=== PATIENT | male | born 1950 | race Caucasian/White ===

== ENCOUNTER 2017-01-25 12:06 | Emergency (ER) | payer MEDICARE, OTHER ==
[~2017-01-25 12:06] MED LIST: ASPI1TAB69 PO; ATOR20TA15 PO; CLOT1CRE6 TOPICAL; LISI10TA PO; LOTR15T TOPICAL
[2017-01-25 12:16] VITALS: BP 133/85; PULSE 79; RESP 20; TEMP 98.4; O2SAT 98
[2017-01-25] MEDS ORDERED: KETOROLAC TROMETHAMINE 30 MG/ML (IVP) VIAL IVP ONE (12:30)
[2017-01-25] MEDS ORDERED: ONDANSETRON HCL 4 MG/2 ML VIAL IVP ONE (12:30)
[2017-01-25] MEDS ORDERED: SODIUM CHLORIDE 0.9% FLUSH 10 ML FLUSH IVF PRN (12:30)
[2017-01-25 12:33] VITALS: BP 120/76; PULSE 76; RESP 18; O2SAT 97
--- NOTE | 2017-01-25 12:37 | PD ---
HPI Chief Complaint: Flank/Kidney Pain Time Seen by Provider: 12:23 Travel History International Travel<30 days: No Contact w/Intl Traveler<30days: No Traveled to known affect area: No History of Present Illness HPI C/O 2 DAY H/O RIGHT FLANK PAIN, 8/10, NOT REALLY RADIATING MUCH, NO AGGRAVATING/ ALLEVIATING FACTORS, NO ASSOCIATED FACTORS EITHER....STATES THESE FEEL LIKE HIS KIDNEY STONES WHICH HE HAS HAD QUITE A FEW OF THEM. PATIENT DENIES ANY H/O PREVIOUS SURGERIES PFSH Past Medical History High Cholesterol: Yes Hypertension: Yes Kidney Stones: Yes (MULTIPLE TIMES) Past Surgical History Tonsillectomy: Yes Social History Alcohol Use: No Tobacco Use: No Substance Use: No Allergies-Medications (Allergen,Severity, Reaction): Coded Allergies: No Known Allergies (Verified , 01/25/17) Reported Meds & Prescriptions Reported Meds & Active Scripts Active Reported Lisinopril-Hctz 10-12.5 Mg Tab 1 Tab PO DAILY Atorvastatin (Atorvastatin Calcium) 20 Mg Tab 20 Mg PO HS Review of Systems Except as stated in HPI: all other systems reviewed are Neg Genitourinary: Positive: Flank Pain Physical Exam Narrative GENERAL: SKIN: Warm and dry. HEAD: Atraumatic. Normocephalic. EYES: Pupils equal and round. No scleral icterus. No injection or drainage. ENT: No nasal bleeding or discharge. Mucous membranes pink and moist. NECK: Trachea midline. No JVD. CARDIOVASCULAR: Regular rate and rhythm. RESPIRATORY: No accessory muscle use. Clear to auscultation. Breath sounds equal bilaterally. GASTROINTESTINAL: Abdomen soft, non-tender, nondistended. MUSCULOSKELETAL: Extremities without clubbing, cyanosis, or edema. No obvious deformities. NEUROLOGICAL: Awake and alert. No obvious cranial nerve deficits. Motor grossly within normal limits. Five out of 5 muscle strength in the arms and legs. Normal speech. PSYCHIATRIC: Appropriate mood and affect; insight and judgment normal. Data Data Last Documented VS Vital Signs Date Time Temp Pulse Resp B/P Pulse Ox O2 Delivery O2 Flow Rate FiO2 01/25/17 12:33 76 18 120/76 97 Room Air 01/25/17 12:16 98.4 Orders Complete Blood Count With Diff (01/25/17 12:24) Comprehensive Metabolic Panel (01/25/17 12:24) Urinalysis - C+S If Indicated (01/25/17 12:24) Ct Abd/Pel W/O Iv Contrast (01/25/17 12:24) Ecg Monitoring (01/25/17 12:24) Iv Access Insert/Monitor (01/25/17 12:24) Ketorolac Inj (Toradol Inj) (01/25/17 12:30) Ondansetron Inj (Zofran Inj) (01/25/17 12:30) Sodium Chloride 0.9% Flush (Ns Flush) (01/25/17 12:30) Lipase (01/25/17 12:26) Labs Laboratory Tests Test 01/25/17 12:50 White Blood Count 7.6 TH/MM3 Red Blood Count 4.58 MIL/MM3 Hemoglobin 14.1 GM/DL Hematocrit 42.3 % Mean Corpuscular Volume 92.4 FL Mean Corpuscular Hemoglobin 30.9 PG Mean Corpuscular Hemoglobin 33.4 % Concent Red Cell Distribution Width 12.6 % Platelet Count 165 TH/MM3 Mean Platelet Volume 8.0 FL Neutrophils (%) (Auto) 73.0 % Lymphocytes (%) (Auto) 14.3 % Monocytes (%) (Auto) 11.2 % Eosinophils (%) (Auto) 0.8 % Basophils (%) (Auto) 0.7 % Neutrophils # (Auto) 5.5 TH/MM3 Lymphocytes # (Auto) 1.1 TH/MM3 Monocytes # (Auto) 0.8 TH/MM3 Eosinophils # (Auto) 0.1 TH/MM3 Basophils # (Auto) 0.1 TH/MM3 CBC Comment DIFF FINAL Differential Comment Sodium Level 143 MEQ/L Potassium Level 4.7 MEQ/L Chloride Level 109 MEQ/L Carbon Dioxide Level 28.4 MEQ/L Anion Gap 6 MEQ/L Blood Urea Nitrogen 19 MG/DL Creatinine 1.40 MG/DL Estimat Glomerular Filtration 51 ML/MIN Rate Random Glucose 88 MG/DL Calcium Level 9.3 MG/DL Total Bilirubin 1.0 MG/DL Aspartate Amino Transf 17 U/L (AST/SGOT) Alanine Aminotransferase 22 U/L (ALT/SGPT) Alkaline Phosphatase 77 U/L Total Protein 6.7 GM/DL Albumin 3.8 GM/DL Lipase 189 U/L [facility] Medical Decision Making Medical Screen Exam Complete: Yes Emergency Medical Condition: Yes Medical Record Reviewed: Yes Differential Diagnosis UTI V LIVER/PANCREAS V KIDNEY STONE Narrative Course NL LIVER/PANCREAS FUNCTIONS, SLIGHT DECLINE IN RENAL FUNCTIONS BUT NOT ADVANCE ENOUGH TO WARRANT ADMISSION. RECC F/U WITH OUTPATIENT PCP. CT DID SHOW 4MM STONE ON PROXIMAL THIRD URETER. Diagnosis Primary Impression: ACUTE RIGHT URETEROLITHIASIS Patient Instructions: General Instructions, Kidney Stones (ED) Scripts Hydrocodone-Acetaminophen (Lortab)7.5-325 Mg Tab1 Tab PO Q6H PRN (PAIN) #20 TAB Prov:Nigel Olivia MD 01/25/17 Tamsulosin (Flomax)0.4 Mg Cap0.4 Mg PO HS #7 CAP Prov:Nigel Olivia MD 01/25/17 Disposition: 01 DISCHARGE HOME Condition: Stable Nigel Olivia MD Jan 25, 2017 12:37
[2017-01-25 13:00] LABS: AUTOMATED NEUTROPHIL # 5.5 TH/MM3 (1.8-7.7); BASOPHIL # 0.1 TH/MM3 (0-0.2); BASOPHIL % 0.7 % (0.0-2.0); EOSINOPHIL # 0.1 TH/MM3 (0-0.4); EOSINOPHIL % 0.8 % (0.0-4.0); HEMATOCRIT 42.3 % (39.0-51.0); HEMO FLAGS DIFF FINAL; LYMPH % 14.3 % (9.0-44.0); LYMPHOCYTE # 1.1 TH/MM3 (1.0-4.8); MEAN CELL VOLUME 92.4 FL (80.0-100.0); MEAN CORPUSCULAR HEMOGLOBIN 30.9 PG (27.0-34.0); MEAN CORPUSCULAR HGB CONC 33.4 % (32.0-36.0); MONO % 11.2 % (0.0-8.0); PLATELET COUNT 165 TH/MM3 (150-450); RED BLOOD COUNT 4.58 MIL/MM3 (4.50-5.90); RED CELL DISTRIBUTION WIDTH 12.6 % (11.6-17.2); WHITE BLOOD COUNT 7.6 TH/MM3 (4.0-11.0)
[2017-01-25 13:07] LABS: CHLORIDE 109 MEQ/L (98-107); POTASSIUM 4.7 MEQ/L (3.5-5.1); SODIUM (NA) 143 MEQ/L (136-145)
[2017-01-25 13:10] LABS: ANION GAP 6 MEQ/L (5-15); BICARBONATE 28.4 MEQ/L (21.0-32.0)
[2017-01-25 13:11] LABS: BLOOD UREA NITROGEN 19 MG/DL (7-18)
[2017-01-25 13:13] LABS: ALT (GPT) 22 U/L (12-78); AST (GOT) 17 U/L (15-37)
--- NOTE | 2017-01-25 13:13 | RADRPT ---
EXAM DATE/TIME: 01/25/2017 12:48 [facility] COMPARISON: CT ABDOMEN & PELVIS W/O CONTRAST, May 06, 2013, 22:29. INDICATIONS : Right flank pain. Evaluate for renal calculi. ORAL CONTRAST: No oral contrast ingested. RADIATION DOSE: 23.23 CTDIvol (mGy) MEDICAL HISTORY : Hypercholesterolemia. Hypertension. Renal calculi. SURGICAL HISTORY : Tonsillectomy. ENCOUNTER: Initial ACUITY: 4 - 6 days PAIN SCALE: 2/10 LOCATION: Right flank TECHNIQUE: Volumetric scanning of the abdomen and pelvis was performed. Using automated exposure control and ad justment of the mA and/or kV according to patient size, radiation dose was kept as low as reasonably achievable to obtain optimal diagnostic quality images. DICOM format image data is available electro nically for review and comparison. FINDINGS: The lung spaces are clear. The liver, spleen, pancreas and adrenals unremarkable Right kidney: Multiple small 2-3 mm calculi are evident with 84 mm Taxus in the proximal third of the right ureter. Left kidney: Numerous small 2-3 mm nonobstructing calculi are present in the left kidney. Moderate vascular calcifications are present in the aorta Scattered diverticuli are present in the pelvis Prostate is prominent Abdominal wall is intact There is no adenopathy or ascites. CONCLUSION: Multiple small renal stones with 4 mm stone proximal third right ureter. Matty Malave MD FACR on January 25, 2017 at 13:05 Board Certified Radiologist. This report was verified electronically.
[2017-01-25 13:14] LABS: GLOMERULAR FILTRATION RATE 51 ML/MIN (>89)
[2017-01-25 13:16] LABS: ALKALINE PHOSPHATASE 77 U/L (45-117)
[2017-01-25] MEDS ORDERED: TAMS5CAP PO (13:19)
[2017-01-25] MEDS ORDERED: HYDR-3534 PO (13:19)
== END 2017-01-25 13:41 | disposition home or self-care (01) ==
LOC: PHED 12:06
DX: N20.1 Calculus of ureter (principal)
CPT/HCPCS: 74176; 80053; 83690; 85025; 96374; 96375; 99285; J1885; J2405

== ENCOUNTER 2017-09-07 19:19 | Emergency (ER) | payer OTHER, MEDICARE ==
[~2017-09-07] VITALS: Ht 182.9 cm; Wt 103.7 kg
[~2017-09-07 19:19] MED LIST changes: -ASPI1TAB69 PO; -CLOT1CRE6 TOPICAL; +HYDR-3534 PO; -LOTR15T TOPICAL; +TAMS5CAP PO
[2017-09-07 19:42] VITALS: BP 163/83; PULSE 78; RESP 16; TEMP 99.3; O2SAT 96
--- NOTE | 2017-09-07 19:59 | PD ---
HPI Chief Complaint: Injury Time Seen by Provider: 19:47 Travel History International Travel<30 days: No Contact w/Intl Traveler<30days: No Traveled to known affect area: No History of Present Illness HPI 59-year-old male to presents to the ED for evaluation of injury to his left fifth toe. Per patient she accidentally dropped a laptop on his toe. Per patient this happened earlier today. Per patient he noted that he had a lot of bruising and swelling and some bleeding on his sock. Per patient his been working all day and today when he got home he noticed that there was blistering and a little swelling on the toe itself. Per patient is not really painful but more swelling which is was concerning for him. Denies taking any blood thinners. No other medical issues. No previous injuries. No allergies to medication. Per patient the pain is 3 out of 10 and it. No numbness, tingling , weakness. PFSH Past Medical History High Cholesterol: Yes Diminished Hearing: No Hypertension: Yes Kidney Stones: Yes (MULTIPLE TIMES) Tetanus Vaccination: Unknown Influenza Vaccination: Yes ?: Not Past Surgical History Tonsillectomy: Yes Social History Alcohol Use: No Tobacco Use: No Substance Use: No Allergies-Medications (Allergen,Severity, Reaction): Coded Allergies: No Known Allergies (Verified Adverse Reaction, Unknown, 09/07/17) Reported Meds & Prescriptions Reported Meds & Active Scripts Active Lisinopril-Hctz 10-12.5 Mg Tab 1 Tab PO DAILY Atorvastatin (Atorvastatin Calcium) 20 Mg Tab 20 Mg PO HS Review of Systems Except as stated in HPI: all other systems reviewed are Neg Physical Exam Narrative GENERAL: SKIN: Warm and dry. HEAD: Atraumatic. Normocephalic. EYES: Pupils equal and round. No scleral icterus. No injection or drainage. ENT: No nasal bleeding or discharge. Mucous membranes pink and moist. NECK: Trachea midline. No JVD. CARDIOVASCULAR: Regular rate and rhythm. RESPIRATORY: No accessory muscle use. Clear to auscultation. Breath sounds equal bilaterally. GASTROINTESTINAL: Abdomen soft, non-tender, nondistended. Hepatic and splenic margins not palpable. MUSCULOSKELETAL: Extremities without clubbing, cyanosis, or edema. No obvious deformities. Patient has full range of motion of the upper and lower extremities bilaterally. Patient has full range of motion of the left foot. Patient does have significant hematoma and bruising noted on the medial aspect of the left fifth toe. Blistering with hematoma noted as well. Patient does have some erythema noted in the area as well. No obvious purulence noted. Tonsils appear to be swollen and slightly tender. He does appear to have good capillary refill however. Good sensation. 2+ pulses bilaterally. NEUROLOGICAL: Awake and alert. No obvious cranial nerve deficits. Motor grossly within normal limits. Five out of 5 muscle strength in the arms and legs. Normal speech. PSYCHIATRIC: Appropriate mood and affect; insight and judgment normal. Data Data Last Documented VS Vital Signs Date Time Temp Pulse Resp B/P (MAP) Pulse Ox O2 Delivery O2 Flow Rate FiO2 09/07/17 19:42 99.3 78 16 163/83 (109) 96 Orders Orders Toe (Min 2vws) (09/07/17 ) Tetanus/Diphtheria Tox Adult (Tetanus/Di (09/07/17 20:30) Splint Or Brace Apply/Monitor (09/07/17 20:17) Ed Discharge Order (09/07/17 20:17) MDM Medical Decision Making Medical Screen Exam Complete: Yes Emergency Medical Condition: Yes Medical Record Reviewed: Yes Interpretation(s) Last Impressions Toe X-Ray 09/07/17 0000 Signed Impressions: Service Date/Time: Thursday, September 07, 2017 19:50 - CONCLUSION: Fractures of the little toe proximal and distal phalanges as above. Malachi Henao MD Differential Diagnosis Fracture versus strain versus sprain versus hematoma versus bruise Narrative Course 67-year-old male that presents to the ED for evaluation of injury to his left fifth toe. Patient was properly examined and was found to have signs and symptoms consistent appears to be hematoma versus fracture. Questionable infection as patient does have erythema in the area and does have brake of the skin but no obvious laceration. xray ordered. This showed fractures of the phalanxes of the left fifth digit. I recommend at this time splint. Patient will be given a prescription for antibiotics and pain medication to use only if needed. Otherwise patient was told to take Motrin or Tylenol. Elevation. Ice. Given postop shoe. Follow with PCP. See ED worsening symptoms. Diagnosis Primary Impression: Toe fracture, left Qualified Codes: S92.515A - Nondisplaced fracture of proximal phalanx of left lesser toe(s), initial encounter for closed fracture Patient Instructions: General Instructions Additional Instructions: Take medications as prescribed. Follow-up with PCP. See ED for any worsening symptoms. Apply ice or heat as needed for pain Med/Other Pt SpecificInfo: Prescription(s) given Disposition: 01 DISCHARGE HOME Condition: Hung Dyson Sep 07, 2017 19:59
--- NOTE | 2017-09-07 20:11 | RADRPT ---
EXAM DATE/TIME: 09/07/2017 19:50 [facility] COMPARISON: No previous studies available for comparison. INDICATIONS : Dropped a computer on foot, pain and bruising to left 5th digit. MEDICAL HISTORY : None. SURGICAL HISTORY : None. ENCOUNTER: Initial ACUITY: 1 day PAIN SCORE: 2/10 LOCATION: Left foot, 5th digit. FINDINGS: Mildly comminuted and mildly displaced fracturing seen of the head and neck of the little toe proxima l phalanx, intra-articular at the proximal interphalangeal joint. Approximately 1 mm of step off of t he distal articular surface noted. No subluxation. Mildly comminuted but essentially nondisplaced fracturing seen of the little toe distal phalanx proxi mal shaft, not convincingly intra-articular. CONCLUSION: Fractures of the little toe proximal and distal phalanges as above. Malachi Henao MD on September 07, 2017 at 20:08 Board Certified Radiologist. This report was verified electronically.
[2017-09-07] MEDS ORDERED: BACT800T5 PO (20:21)
[2017-09-07] MEDS ORDERED: TRAM50TA PO (20:21)
[2017-09-07] MEDS ORDERED: TETANUS/DIPHTHERIA TOXOID ADULT 0.5 ML VIAL IM ONE (20:30)
== END 2017-09-07 20:38 | disposition home or self-care (01) ==
LOC: PHED 19:19 → PHEFT 20:38
DX: S92.515A Nondisplaced fracture of proximal phalanx of left lesser toe(s), initial encounter for closed fracture (principal); W22.8XXA Striking against or struck by other objects, initial encounter; E78.00 Pure hypercholesterolemia, unspecified; I10 Essential (primary) hypertension; Z23 Encounter for immunization
CPT/HCPCS: 73660; 90471; 90714; 99283; L3260